=== PATIENT | male | born 1940 | race Caucasian/White ===

== ENCOUNTER → 2018-03-25 | Outpatient (CLI) | payer MEDICARE, OTHER ==
--- NOTE | 2018-04-04 12:43 | ONC ---
[place] [address] RADIATION ONCOLOGY NOTE Name: JAMA LEACH Room: [facility]#: [id number] Admission: 03/25/18 Attend Phys: Surinder Santoro MD Discharge: Date of : 36 Report #: [id number] THIS REPORT FOR: //name// CC: Surinder Zavala DATE OF PROCEDURE: 03/25/2018 REFERRING PHYSICIANS: Dr. You Mayer, Dr. Yara Zavala. [facility] phone is [phone]. PROCEDURE: Nasopharyngolaryngoscopy. 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 The patient's treatments were completed on 05/24/2004. FINDINGS: On nasopharyngolaryngoscopy, after a small amount of 2% viscous lidocaine was given orally and 2% viscous lidocaine was given to the right nostril via a cotton swab, there were no visible lesions in the nasopharynx and no visible lesions in the posterior oropharynx. The true vocal cords were normally mobile bilaterally without any visible lesions. There was no evidence of head and neck cancer. Thank you for allowing me to participate in the care of this patient. <ELECTRONICALLY SIGNED> By: Surinder Santoro MD 04/04/18 1243 1229 [id number] jamie Wheeler
--- NOTE | 2018-04-04 13:20 | ONC ---
[address] [address] RADIATION ONCOLOGY NOTE Name: JAMA LEACH Room: [facility]#: [id number] Admission: 03/25/18 Attend Phys: Surinder Santoro MD Discharge: Date of : 36 Report #: [id number] THIS REPORT FOR: //name// CC: Surinder Zavala DATE OF SERVICE: 03/25/2018 REFERRING PHYSICIANS: Dr. You Mayer and Dr. Yara Zavala. [facility] phone is [phone]. 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 The radiation treatments were completed on 05/24/2004. INTERVAL NOTE: The patient has a good voice quality. The patient's speech is good. He is eating a regular diet. He feels like he is swallowing fine. MEDICATIONS: Include hydrochlorothiazide 25 mg per day, 175 mcg of levothyroxine per day. He has also been taking niacin. He is trying to take that instead of rosuvastatin. 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 Cigarettes: he smoked about 2-3 packs per day for about 30 years. He quit smoking in 07/1999. REVIEW OF SYSTEMS: RESPIRATORY: The patient's breathing was baseline. He was not short of breath. GASTROINTESTINAL: The patient is eating well. He has a good appetite. PHYSICAL EXAMINATION: VITAL SIGNS: The patient weighed was 263.8 pounds on 03/25/2018, 265.8 pounds on 03/28/2017. On 03/25/2018, blood pressure was 162/79, pulse 55, respirations 20, oxygen saturation 96%. I rechecked the pulse and it was 60 when it was re-checked.. LYMPH NODES: He had no palpable cervical or supraclavicular lymphadenopathy. HEAD, EYES, EARS, NOSE AND THROAT: Mouth had no suspicious visible lesions or suspicious palpable lesions. On nasopharyngolaryngoscopy via the right nostril after giving a small amount of viscous lidocaine orally and 2% viscous lidocaine to the right nostril via a cotton swab, there were no visible lesions in the nasopharynx and no visible lesions in the posterior pharynx. The true vocal cords were normally mobile bilaterally without any visible lesions. HEART: Had a regular rate and rhythm without murmur. LUNGS: were clear to auscultation. LABORATORY DATA: From 03/18/2018, his T[place] [address] RADIATION ONCOLOGY NOTE Name: JAMA LEACH Room: [facility]#: [id number] Admission: 03/25/18 Attend Phys: Surinder Santoro MD Discharge: Date of : 36 Report #: [id number] at 0.46 with normal being 0.47-4.68, so he will remain on his present 175 mcg of levothyroxine per day. ASSESSMENT: 1. History of head and neck cancer- There is no evidence of head and neck cancer at this time. The patient was asked to schedule a follow up appointment to see me in about 1 year. 2. Hypothyroidism- The patient was given a refill for his 175 mcg of levothyroxine per day and he was given a requisition to have a TSH in about 1 year. He was asked to schedule a follow up appointment to see me afterwards. 3. Hypertension- The patient takes hydrochlorothiazide and that is managed by his referring physicians. He said, that at home, he gets blood pressures of 109/76. 4. Hyperlipidemia- The patient may try switch to niacin from rosuvastatin. I told him to try to have that managed by his primary care physician. Thank you for allowing me to participate in the care of this patient. <ELECTRONICALLY SIGNED> By: Surinder Santoro MD 04/04/18 1320 1232 1922Dglenn Santoro MD /nt
== END ==
LOC: M.RTH 09:30
DX: Z08 Encounter for follow-up examination after completed treatment for malignant neoplasm (principal); C32.9 Malignant neoplasm of larynx, unspecified; E03.9 Hypothyroidism, unspecified; I10 Essential (primary) hypertension; E78.5 Hyperlipidemia, unspecified; Z85.9 Personal history of malignant neoplasm, unspecified

== ENCOUNTER → 2019-03-26 | Outpatient (CLI) | payer MEDICARE, OTHER ==
--- NOTE | ~2019-03-26 | ONC ---
[place] [address] RADIATION ONCOLOGY NOTE Name: JAMA LEACH Room: [facility]#: [id number] Admission: 03/26/19 Attend Phys: Surinder Santoro MD Discharge: Date of : 36 Report #: [id number] THIS REPORT FOR: //name// CC: Surinder Mayer DATE OF SERVICE: 03/26/2019 RADIOLOGY ONCOLOGY PROCEDURE NOTE REFERRING PHYSICIANS: You Mayer MD and UVALDO Wisdom [facility], phone is [phone]. PROCEDURE: Nasopharyngolaryngoscopy. PRIMARY SITE AND HISTOPATHOLOGY: The patient received definitive radiation therapy for T1 N0 M0 squamous cell carcinoma involved the right true vocal cord. The patient's treatments were completed on 05/24/2004. FINDINGS: On nasopharyngolaryngoscopy, after a small amount of 2% viscous lidocaine was given orally and 2% viscous lidocaine was given to the right nostril via cotton swab, there were no visible lesions in the nasopharynx, no visible lesions in the posterior oropharynx. True vocal cords are normally mobile bilaterally without any visible lesions. There was no evidence of head and neck cancer. Thank you for allowing me to participate in the care of this patient. By: 1330 0006Surinder Santoro MD /liv
--- NOTE | ~2019-03-26 | ONC ---
[address] [address] RADIATION ONCOLOGY NOTE Name: JAMA LEACH Room: [facility]#: [id number] Admission: 03/26/19 Attend Phys: Surinder Santoro MD Discharge: Date of : 36 Report #: [id number] THIS REPORT FOR: //name// CC: Surinder Mayer DATE OF SERVICE: 03/26/2019 RADIATION ONCOLOGY FOLLOWUP NOTE REFERRING PHYSICIANS: Dr. Dumont; Dr. Price; Yara Zavala MD [facility], phone is [phone]. PRIMARY SITE AND HISTOPATHOLOGY: The patient received definitive radiation therapy for stage T1 N0 M0 squamous cell carcinoma involving the right true vocal cord. The radiation treatments were completed on 05/24/2004. INTERVAL NOTE: The patient has good voice quality. The patient's speech is good. He is eating a regular diet and he feels like he is swallowing well. MEDICATIONS: Include hydrochlorothiazide, 175 mcg of levothyroxine per day. He takes niacin. 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 Cigarettes, he smoked about 2-3 packs per day for about 30 years. He quit smoking in 07/1999.. REVIEW OF SYSTEMS: RESPIRATORY: The patient's breathing was baseline. He was not short of breath. GASTROINTESTINAL: The patient is eating well. He has a good appetite. PHYSICAL EXAMINATION: VITAL SIGNS: The patient's weight was 269.4 pounds on 03/26/2019. He was 263.8 pounds on 03/25/2018 and on 03/26/2019 blood pressure is 160/80, pulse 54, respirations 20, oxygen saturation 96% on room air. LYMPH NODES: He had no palpable cervical or supraclavicular lymphadenopathy. HEAD, EYES, EARS, NOSE AND THROAT: Mouth had no suspicious visible lesions or suspicious palpable lesions. On nasopharyngolaryngoscopy via the right nostril after giving a small amount of viscous lidocaine orally and 2% viscous lidocaine to the right nostril via cotton swab, there are no visible lesions in the nasopharynx, no visible lesions in the posterior oropharynx. The true vocal cords are normally mobile bilaterally without any visible lesions. HEART: Had a regular rate and rhythm without murmur. LUNGS: [place] [address] RADIATION ONCOLOGY NOTE Name: HAYLEEJAMA Mike Room: [facility]#: [id number] Admission: 03/26/19 Attend Phys: Surinder Santoro MD Discharge: Date of : 36 Report #: [id number] LABORATORY DATA: From 02/15/2019, TSH was 1.37 with him taking 175 mcg of levothyroxine per day. ASSESSMENT AND PLAN: 1. History of head and neck cancer. There is no evidence of neck cancer at this time. The patient was asked to schedule a followup appointment to see me in about 1 year. 2. Hypothyroidism. The patient's TSH was done and is within normal limits with him taking 175 mcg of levothyroxine per day. A TSH was ordered in about 1 year. The patient was asked to schedule a followup appointment to see me afterwards. 3. Hypertension. The patient takes hydrochlorothiazide and that is managed by his referring physicians. 4. Hyperlipidemia. The patient takes niacin for his hyperlipidemia. Thank you for allowing me to participate in the care of this patient. By: 1336 [id number] Santoro MD /liv
== END ==
LOC: M.RTH 03-24 09:30
DX: Z09 Encounter for follow-up examination after completed treatment for conditions other than malignant neoplasm (principal); E03.9 Hypothyroidism, unspecified; I10 Essential (primary) hypertension; E78.5 Hyperlipidemia, unspecified; Z79.899 Other long term (current) drug therapy; Z85.21 Personal history of malignant neoplasm of larynx; Z92.3 Personal history of irradiation

== ENCOUNTER → 2020-03-24 | Outpatient (CLI) | payer MEDICARE, OTHER ==
--- NOTE | 2020-03-26 11:05 | ONC ---
[place] [address] RADIATION ONCOLOGY NOTE Name: JAMA LEACH Room: [facility]#: [id number] Admission: 03/24/20 Attend Phys: Surinder Santoro MD Discharge: Date of : 36 Report #: [id number] THIS REPORT FOR: //name// CC: Surinder Capps MD DATE OF SERVICE: 03/24/2020 [facility] RADIATION ONCOLOGY PROCEDURE NOTE PROCEDURE: Nasopharyngolaryngoscopy. PRIMARY SITE AND HISTOPATHOLOGY: The patient received definitive radiation therapy for a T1 N0 M0 squamous cell cancer that involved the right true vocal cord. The patient's treatments were completed on 05/24/2004. FINDINGS: On nasopharyngolaryngoscopy, after a small amount of 2% viscous lidocaine was given orally and 2% viscous lidocaine was given to the right nostril via a cotton swab, there were no visible lesions in the nasopharynx. There were no visible lesions in the posterior oropharynx. The true vocal cords were normally mobile bilaterally without any visible lesions. There was no evidence of head and neck cancer. Thank you for allowing me to participate in the care of this patient. <ELECTRONICALLY SIGNED> By: Surinder Santoro MD 03/26/20 1105 1055 [id number] jamie Wheeler
--- NOTE | 2020-03-26 11:08 | ONC ---
[address] [address] RADIATION ONCOLOGY NOTE Name: JAMA LEACH Room: [facility]#: [id number] Admission: 03/24/20 Attend Phys: Surinder Santoro MD Discharge: Date of : 36 Report #: [id number] THIS REPORT FOR: //name// CC: Surinder Capps MD DATE OF SERVICE: 03/24/2020 RADIATION ONCOLOGY FOLLOWUP NOTE REFERRING PHYSICIANS: Dr. Dumont and Dr. Bhupinder Capps from Dermatology. [facility] phone is [phone]. 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 Radiation treatments were completed on 05/24/2004. INTERVAL NOTE: The patient has a good voice quality. The patient's speech is good. He is eating a regular diet and he is swallowing well. Sometimes he says that if he talks for a long time, his voice can get slightly raspy. MEDICATIONS: Include hydrochlorothiazide, 175 mcg of levothyroxine and appears he may be restarting niacin with inositol. 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 Cigarettes, he smoked about 2-3 packs per day for about 30 years. He quit smoking in 07/1999. He indicated that he has about 13 grandchildren. REVIEW OF SYSTEMS: RESPIRATORY: The patient's breathing was baseline. He was not short of breath. GASTROINTESTINAL: The patient is eating well. He indicated that he has an abdominal wall hernia that is asymptomatic and his primary care physician told him to just manage it in a conservative manner by just watching it. PHYSICAL EXAMINATION: VITAL SIGNS: The patient weighed 264 pounds on 03/24/2020, was 269.4 pounds on 03/26/2020, and on 03/24/2020 blood pressure was 147/69, pulse 55, oxygen saturation 96%, temperature 97.8 degrees Fahrenheit, respirations 20. LYMPH NODES: He had no palpable cervical or supraclavicular lymphadenopathy. HEAD, EYES, EARS, NOSE AND THROAT: Mouth had no suspicious visible lesions or suspicious palpable lesions. On nasopharyngolaryngoscopy via the right nostril after applying a small amount of viscous lidocaine orally and 2% viscous lidocaine to the right nostril [place] [address] RADIATION ONCOLOGY NOTE Name: JAMA LEACH Room: [facility]#: [id number] Admission: 03/24/20 Attend Phys: Surinder Santoro MD Discharge: Date of : 36 Report #: [id number] swab, there were no visible lesions in the nasopharynx and no visible lesions in the posterior pharynx. The true vocal cords were normally mobile bilaterally without any visible lesions. HEART: Had a regular rate and rhythm without murmur. LUNGS: were clear to auscultation. LABORATORY DATA:. His TSH was 0.8 on 03/03/2020 and that is within normal limits with him taking 175 mcg of levothyroxine per day. ASSESSMENT AND PLAN: 1. History of head and neck cancer- There is no evidence of head and neck cancer at this time. The patient was asked to schedule a followup appointment to see me in about 1 year. 2. Hypothyroidism- The patient's TSH was within normal limits with him taking 175 mcg of levothyroxine per day.A TSH was ordered in about 1 year and the patient was asked to schedule a followup appointment to see me afterwards. 3. Hypertension- The patient takes hydrochlorothiazide and that is managed by his referring physicians. 4. Hyperlipidemia- It sounds like the patient may resume niacin with inositol and he continues to follow up with his primary care physician, Dr. Dumont. Thank you for allowing me to participate in the care of this patient. <ELECTRONICALLY SIGNED> By: Surinder Santoro MD 03/26/20 1108 1100 [id number] Santoro MD /nt
== END ==
LOC: M.RTH 03:45
PROVIDERS: ATTEND Radiology Radiation Oncology
DX: Z08 Encounter for follow-up examination after completed treatment for malignant neoplasm (principal); E03.9 Hypothyroidism, unspecified; I10 Essential (primary) hypertension; Z92.3 Personal history of irradiation; Z85.21 Personal history of malignant neoplasm of larynx; Z85.89 Personal history of malignant neoplasm of other organs and systems